=== PATIENT | male | born 1970 | race Two or more races ===

== ENCOUNTER 2024-09-15 20:18 | Emergency (ER) | payer OTHER ==
[~2024-09-15] VITALS: Ht 149.9 cm; Wt 63.5 kg
[2024-09-15] MEDS ORDERED: ZESTRIL2.5 MG (20:45)
[2024-09-15] MEDS ORDERED: ACETAMINOPHEN500 M1 PO (22:36)
[2024-09-15] MEDS ORDERED: KETOROLAC TROMETHAMINE 60 MG VIAL IM ONE ×2 (22:45→22:51)
== END 2024-09-15 23:37 | disposition home or self-care (01) ==
LOC: ER 20:19
DX: G44.209 Tension-type headache, unspecified, not intractable (principal); R53.81 Other malaise; I10 Essential (primary) hypertension